=== PATIENT | male | born 1985 | race Caucasian/White ===

== ENCOUNTER 2017-09-03 05:19 | Inpatient (IN) | payer MEDICAID, OTHER ==
[2017-09-03] MEDS: PANTOPRAZOLE 40 MG INJ IV (06:43)
[2017-09-03] MEDS: SOD CHLORIDE 0.9% 1,000 ML IV ×3 (06:43→21:27)
[2017-09-03] MEDS: ONDANSETRON 4 MG INJ IV (06:43)
[2017-09-03 07:10] LABS: ADD MAN DIFF? NO
[2017-09-03 07:23] LABS: BASOPHIL # 0.1 10^3/ul (0.0-0.1); BASOPHILS % 0.3 % (0.0-2.0); HEMOGLOBIN 14.3 g/dl (14.0-18.0); LYMPHOCYTES # 0.7 10^3/ul (0.8-2.9); LYMPHOCYTES % 3.8 % (15.0-51.0); MEAN CORPUSCULAR HEMOGLOBIN 30.9 pg (29.0-33.0); MEAN CORPUSCULAR VOLUME 90.7 fl (82.0-101.0); MEAN PLATELET VOLUME 11.5 fl (7.4-10.4); MONOCYTE # 1.2 10^3/ul (0.3-0.9); NEUTROPHIL # 15.3 10^3/ul (1.6-7.5); NEUTROPHILS % 88.6 % (39.0-77.0); PLATELET COUNT 211 10^3/UL (140-415); RED BLOOD COUNT 4.63 10^6/ul (4.70-6.10); RED CELL DISTRIBUTION WIDTH 13.5 % (11.5-14.5)
[2017-09-03 07:23] LABS: WHITE BLOOD COUNT 17.2 10^3/ul (4.8-10.8)
[2017-09-03 07:38] LABS: ALANINE AMINOTRANSFERASE 217 IU/L (13-69); ALBUMIN 4.8 g/dl (3.3-4.9); ALBUMIN/GLOBULIN RATIO 1.37; ALKALINE PHOSPHATASE 78 IU/L (42-121); ANION GAP 23 (8-16); ASPARTATE AMINO TRANSFERASE 326 IU/L (15-46); BILIRUBIN,INDIRECT 0.1 mg/dl (0-1.1); BILIRUBIN,TOTAL 0.1 mg/dl (0.2-1.3); BLOOD UREA NITROGEN 10 mg/dl (7-20); CALCIUM 9.3 mg/dl (8.4-10.2); CARBON DIOXIDE 22 mmol/L (21-31); CHLORIDE 106 mmol/L (97-110); CREATININE 0.81 mg/dl (0.61-1.24); GLUCOSE 140 mg/dl (70-220); SODIUM 146 mmol/L (135-144); TOTAL PROTEIN 8.3 g/dl (6.1-8.1)
[2017-09-03 07:41] LABS: INR 0.94; PROTIME 12.7 Sec (11.9-14.9)
[2017-09-03 07:42] LABS: PARTIAL THROMBOPLASTIN TIME 23.5 Sec (25.0-35.0)
[2017-09-03 07:58] LABS: TROPONIN-I < 0.012 ng/ml (0.000-0.120)
[2017-09-03] MEDS ORDERED: ACETAMINOPHEN 325 MG TAB PO (10:00)
[2017-09-03] MEDS ORDERED: ONDANSETRON 4 MG INJ IV ×2 (10:00→11:00)
[2017-09-03] MEDS ORDERED: HYDROCODONE/APAP (5/325) TAB PO (11:00)
[2017-09-03] MEDS ORDERED: NACL 0.9% 3 ML SYG IV (11:00)
[2017-09-03 11:10] LABS: HEMOGLOBIN A1C 5.6 % (0-5.9)
[2017-09-03 11:24] LABS: FREE T4 (FREE THYROXINE) 1.55 ng/dl (0.79-2.35)
[2017-09-03 11:37] LABS: THYROID STIMULATING HORMONE 0.474 MIU/L (0.465-4.680)
[2017-09-03] MEDS: THIAMINE 100 MG TAB PO (11:38)
[2017-09-03] MEDS: FOLIC ACID 1 MG TAB PO (11:38)
[2017-09-03] MEDS: LORAZEPAM 0.5 MG TAB PO (11:42)
[2017-09-03 12:14] LABS: HAAIG REFLEX REFLEX FILED
[2017-09-03 12:25] LABS: HEMATOCRIT 39.2 % (42.0-52.0); HEMOGLOBIN 12.8 g/dl (14.0-18.0)
[2017-09-03] MEDS: CHLORDIAZEPOXIDE 25 MG CAP PO ×2 (13:03→21:26)
[2017-09-03 13:13] LABS: HEPATITIS B SURFACE ANTIGEN NEGATIVE (NEGATIVE)
[2017-09-03] MEDS: PANTOPRAZOLE IV 80 MG in SOD CHLORIDE 0.9% 100 ML IV ×2 (13:23→22:37)
[2017-09-03 13:31] LABS: HEPATITIS B CORE ANTIBODY NEGATIVE (NEGATIVE); HEPATITIS C VIRAL ANTIBODY NEGATIVE (NEGATIVE)
[2017-09-03] MEDS: LORAZEPAM 2 MG INJ IV (17:50)
[2017-09-04] MEDS: LORAZEPAM 2 MG INJ IV (01:38)
[2017-09-04 05:24] LABS: ADD MAN DIFF? NO
[2017-09-04 05:28] LABS: WHITE BLOOD COUNT 6.1 10^3/ul (4.8-10.8)
[2017-09-04 05:28] LABS: BASOPHILS % 0.5 % (0.0-2.0); EOSINOPHILS # 0.1 10^3/ul (0.0-0.5); HEMATOCRIT 30.8 % (42.0-52.0); HEMOGLOBIN 10.1 g/dl (14.0-18.0); LYMPHOCYTES # 1.2 10^3/ul (0.8-2.9); LYMPHOCYTES % 20.3 % (15.0-51.0); MEAN CORPUSCULAR HEMOGLOBIN 30.8 pg (29.0-33.0); MEAN CORPUSCULAR HGB CONC 32.8 g/dl (32.0-37.0); MEAN CORPUSCULAR VOLUME 93.9 fl (82.0-101.0); MEAN PLATELET VOLUME 11.6 fl (7.4-10.4); MONOCYTE # 0.8 10^3/ul (0.3-0.9); MONOCYTES % 13.1 % (0.0-11.0); NEUTROPHILS % 64.9 % (39.0-77.0); RED BLOOD COUNT 3.28 10^6/ul (4.70-6.10); RED CELL DISTRIBUTION WIDTH 13.5 % (11.5-14.5)
[2017-09-04 05:52] LABS: ALANINE AMINOTRANSFERASE 97 IU/L (13-69); ALBUMIN 2.9 g/dl (3.3-4.9); ALBUMIN/GLOBULIN RATIO 1.16; ALKALINE PHOSPHATASE 42 IU/L (42-121); AMYLASE 41 U/L (11-123); ANION GAP 7 (8-16); ASPARTATE AMINO TRANSFERASE 76 IU/L (15-46); BILIRUBIN,INDIRECT 0.7 mg/dl (0-1.1); BILIRUBIN,TOTAL 0.7 mg/dl (0.2-1.3); BLOOD UREA NITROGEN 8 mg/dl (7-20); CALCIUM 8.2 mg/dl (8.4-10.2); CARBON DIOXIDE 32 mmol/L (21-31); CHLORIDE 106 mmol/L (97-110); CREATININE 0.71 mg/dl (0.61-1.24); GLUCOSE 97 mg/dl (70-220); LIPASE 57 U/L (23-300); POTASSIUM 4.2 mmol/L (3.5-5.1); SODIUM 141 mmol/L (135-144); TOTAL PROTEIN 5.4 g/dl (6.1-8.1)
[2017-09-04 06:03] LABS: CHOL/HDL RATIO 1.4 RATIO; CHOLESTEROL 103 mg/dl (100-200); HDL CHOLESTEROL 69 mg/dl (28-63); LDL CHOLESTEROL,CALCULATED 27 mg/dl; MAGNESIUM 1.7 mg/dl (1.7-2.5); TRIGLYCERIDES 37 mg/dl (0-149)
[2017-09-04 06:03] LABS: PHOSPHORUS 3.3 mg/dl (2.5-4.9)
[2017-09-04] MEDS: PANTOPRAZOLE IV 80 MG in SOD CHLORIDE 0.9% 100 ML IV ×2 (06:30→09:54)
[2017-09-04 06:50] LABS: PLATELET COUNT 136 10^3/UL (140-415)
[2017-09-04 07:29] LABS: ADD UMIC NO; UR ASCORBIC ACID NEGATIVE (NEGATIVE); UR BILIRUBIN (Dip) NEGATIVE (NEGATIVE); UR BLOOD (Dip) NEGATIVE (NEGATIVE); UR CLARITY CLEAR (CLEAR); UR COLOR YELLOW (YELLOW); UR GLUCOSE (Dip) NEGATIVE (NEGATIVE); UR KETONES (Dip) TRACE mg/dL (NEGATIVE); UR LEUKOCYTE ESTERASE (Dip) NEGATIVE Leu/ul (NEGATIVE); UR NITRITE (Dip) NEGATIVE (NEGATIVE); UR SPECIFIC GRAVITY (Dip) 1.017 (1.003-1.030); UR TOTAL PROTEIN (Dip) NEGATIVE (NEGATIVE); UR UROBILINOGEN (Dip) NEGATIVE (NEGATIVE)
[2017-09-04 08:01] LABS: AMPHETAMINE/METHAMPHETAMINE Negative (NEGATIVE)
[2017-09-04 08:10] LABS: BARBITURATES Negative (NEGATIVE); CANNABINOIDS Negative (NEGATIVE)
[2017-09-04 08:11] LABS: BENZODIAZEPINES Positive (NEGATIVE); COCAINE Positive (NEGATIVE); OPIATES Positive (NEGATIVE)
[2017-09-04] MEDS: FOLIC ACID 1 MG TAB PO (09:00)
[2017-09-04] MEDS: THIAMINE 100 MG TAB PO (09:00)
[2017-09-04] MEDS: CHLORDIAZEPOXIDE 25 MG CAP PO ×2 (09:00→13:22)
[2017-09-04] MEDS: SOD CHLORIDE 0.9% 1,000 ML IV (13:02)
[2017-09-04 14:38] LABS: HEMATOCRIT 34.9 % (42.0-52.0); HEMOGLOBIN 11.6 g/dl (14.0-18.0)
[2017-09-07 06:37] LABS: URINE DRUG SCREEN RESULT DRUG(S) DETECTED:
== END 2017-09-04 18:20 | disposition left against medical advice (07) | DRG 379 ==
LOC: E/R 05:19 → MS1 09:48
DX: K92.0 Hematemesis (principal); F10.20 Alcohol dependence, uncomplicated; D72.829 Elevated white blood cell count, unspecified; Z72.0 Tobacco use; E80.6 Other disorders of bilirubin metabolism; Y90.6 Blood alcohol level of 120-199 mg/100 ml
CPT/HCPCS: 36415; 80053; 80061; 80307; 81003; 82150; 83036; 83690; 83735; 84100; 84439; 84443; 84484; 85014; 85018; 85025; 85610; 85730; 86704; 86709; 86803; 86850; 86900; 86901; 87340; 93005; 96374; 96375; 99285-25

== ENCOUNTER 2017-09-04 20:30 | Inpatient (IN) | payer MEDICAID ==
[2017-09-04] MEDS ORDERED: ACETAMINOPHEN 325 MG TAB PO ×2 (21:00→21:30)
[2017-09-04] MEDS ORDERED: ONDANSETRON 4 MG INJ IV ×2 (21:00→21:30)
[2017-09-04] MEDS: SOD CHLORIDE 0.9% 1,000 ML IV ×3 (21:04→21:53)
[2017-09-04 21:13] LABS: ADD MAN DIFF? NO
[2017-09-04 21:15] LABS: BASOPHILS % 0.4 % (0.0-2.0); EOSINOPHILS # 0.1 10^3/ul (0.0-0.5); EOSINOPHILS % 1.2 % (0.0-7.0); HEMATOCRIT 35.8 % (42.0-52.0); HEMOGLOBIN 11.9 g/dl (14.0-18.0); LYMPHOCYTES # 0.8 10^3/ul (0.8-2.9); LYMPHOCYTES % 13.3 % (15.0-51.0); MEAN CORPUSCULAR HEMOGLOBIN 31.1 pg (29.0-33.0); MEAN CORPUSCULAR HGB CONC 33.2 g/dl (32.0-37.0); MEAN CORPUSCULAR VOLUME 93.5 fl (82.0-101.0); MEAN PLATELET VOLUME 11.5 fl (7.4-10.4); MONOCYTE # 0.7 10^3/ul (0.3-0.9); MONOCYTES % 11.6 % (0.0-11.0); NEUTROPHIL # 4.1 10^3/ul (1.6-7.5); NEUTROPHILS % 73.3 % (39.0-77.0); PLATELET COUNT 144 10^3/UL (140-415); RED BLOOD COUNT 3.83 10^6/ul (4.70-6.10); RED CELL DISTRIBUTION WIDTH 13.5 % (11.5-14.5)
[2017-09-04 21:15] LABS: WHITE BLOOD COUNT 5.6 10^3/ul (4.8-10.8)
[2017-09-04] MEDS: PANTOPRAZOLE IV 80 MG in SOD CHLORIDE 0.9% 100 ML IV (21:18)
[2017-09-04] MEDS ORDERED: NACL 0.9% 3 ML SYG IV (21:30)
[2017-09-04] MEDS ORDERED: HYDROmorphONE 0.5 MG/0.5 ML SYG IV (21:30)
[2017-09-04 21:34] LABS: ALANINE AMINOTRANSFERASE 114 IU/L (13-69); ALBUMIN 4.1 g/dl (3.3-4.9); ALBUMIN/GLOBULIN RATIO 1.32; ALKALINE PHOSPHATASE 63 IU/L (42-121); ANION GAP 20 (8-16); ASPARTATE AMINO TRANSFERASE 118 IU/L (15-46); BILIRUBIN,INDIRECT 0.4 mg/dl (0-1.1); BILIRUBIN,TOTAL 0.4 mg/dl (0.2-1.3); BLOOD UREA NITROGEN 3 mg/dl (7-20); CALCIUM 8.7 mg/dl (8.4-10.2); CARBON DIOXIDE 25 mmol/L (21-31); CHLORIDE 107 mmol/L (97-110); CREATININE 0.73 mg/dl (0.61-1.24); GLUCOSE 98 mg/dl (70-220); POTASSIUM 3.9 mmol/L (3.5-5.1); SODIUM 148 mmol/L (135-144); TOTAL PROTEIN 7.2 g/dl (6.1-8.1)
[2017-09-04 21:36] LABS: INR 0.93; PROTIME 12.5 Sec (11.9-14.9)
[2017-09-04 21:37] LABS: PARTIAL THROMBOPLASTIN TIME 28.6 Sec (25.0-35.0)
[2017-09-04 21:42] LABS: COCAINE Negative (NEGATIVE)
[2017-09-04 21:43] LABS: AMPHETAMINE/METHAMPHETAMINE Negative (NEGATIVE); BARBITURATES Negative (NEGATIVE); BENZODIAZEPINES Positive (NEGATIVE); CANNABINOIDS Negative (NEGATIVE); OPIATES Negative (NEGATIVE)
[2017-09-04 21:52] LABS: TROPONIN-I < 0.012 ng/ml (0.000-0.120)
[2017-09-04] MEDS: CHLORDIAZEPOXIDE 25 MG CAP PO (22:48)
[2017-09-04] MEDS: LORAZEPAM 2 MG INJ IV (22:49)
[2017-09-05 02:42] LABS: ADD MAN DIFF? NO
[2017-09-05 02:44] LABS: BASOPHILS % 0.4 % (0.0-2.0); EOSINOPHILS # 0.1 10^3/ul (0.0-0.5); EOSINOPHILS % 2.4 % (0.0-7.0); HEMATOCRIT 31.1 % (42.0-52.0); HEMOGLOBIN 10.4 g/dl (14.0-18.0); LYMPHOCYTES # 1.3 10^3/ul (0.8-2.9); MEAN CORPUSCULAR HGB CONC 33.4 g/dl (32.0-37.0); MEAN CORPUSCULAR VOLUME 92.6 fl (82.0-101.0); MEAN PLATELET VOLUME 12.1 fl (7.4-10.4); MONOCYTE # 0.6 10^3/ul (0.3-0.9); MONOCYTES % 11.9 % (0.0-11.0); NEUTROPHILS % 59.1 % (39.0-77.0); PLATELET COUNT 134 10^3/UL (140-415); RED BLOOD COUNT 3.36 10^6/ul (4.70-6.10); RED CELL DISTRIBUTION WIDTH 13.6 % (11.5-14.5)
[2017-09-05 03:00] LABS: ETHANOL < 10.0 mg/dl
[2017-09-05 03:02] LABS: ALANINE AMINOTRANSFERASE 129 IU/L (13-69); ALBUMIN 3.3 g/dl (3.3-4.9); ALBUMIN/GLOBULIN RATIO 1.13; ALKALINE PHOSPHATASE 56 IU/L (42-121); ANION GAP 15 (8-16); ASPARTATE AMINO TRANSFERASE 181 IU/L (15-46); BILIRUBIN,INDIRECT 0.3 mg/dl (0-1.1); BILIRUBIN,TOTAL 0.3 mg/dl (0.2-1.3); BLOOD UREA NITROGEN 4 mg/dl (7-20); CALCIUM 8.3 mg/dl (8.4-10.2); CARBON DIOXIDE 27 mmol/L (21-31); CHLORIDE 111 mmol/L (97-110); CREATININE 0.68 mg/dl (0.61-1.24); GLUCOSE 107 mg/dl (70-220); SODIUM 149 mmol/L (135-144); TOTAL PROTEIN 6.2 g/dl (6.1-8.1)
[2017-09-05] MEDS: LORAZEPAM 2 MG INJ IV ×3 (03:09→13:35)
[2017-09-05] MEDS: D5W-0.45 NACL + KCL 10 MEQ 1,000 ML IV (03:14)
[2017-09-05 08:52] LABS: ADD MAN DIFF? NO
[2017-09-05 08:56] LABS: BASOPHILS % 0.4 % (0.0-2.0); EOSINOPHILS # 0.1 10^3/ul (0.0-0.5); EOSINOPHILS % 2.3 % (0.0-7.0); HEMATOCRIT 31.7 % (42.0-52.0); HEMOGLOBIN 10.4 g/dl (14.0-18.0); LYMPHOCYTES # 1.2 10^3/ul (0.8-2.9); LYMPHOCYTES % 24.1 % (15.0-51.0); MEAN CORPUSCULAR HEMOGLOBIN 30.7 pg (29.0-33.0); MEAN CORPUSCULAR HGB CONC 32.8 g/dl (32.0-37.0); MEAN CORPUSCULAR VOLUME 93.5 fl (82.0-101.0); MEAN PLATELET VOLUME 11.9 fl (7.4-10.4); MONOCYTE # 0.6 10^3/ul (0.3-0.9); MONOCYTES % 12.2 % (0.0-11.0); NEUTROPHIL # 2.9 10^3/ul (1.6-7.5); NEUTROPHILS % 60.8 % (39.0-77.0); PLATELET COUNT 139 10^3/UL (140-415); RED BLOOD COUNT 3.39 10^6/ul (4.70-6.10); RED CELL DISTRIBUTION WIDTH 13.4 % (11.5-14.5)
[2017-09-05 08:56] LABS: WHITE BLOOD COUNT 4.8 10^3/ul (4.8-10.8)
[2017-09-05] MEDS: CHLORDIAZEPOXIDE 25 MG CAP PO ×2 (09:30→13:12)
[2017-09-05] MEDS ORDERED: CHLORDIAZEPOXIDE 25 MG CAP PO (13:00)
[2017-09-05] MEDS: CEFTRIAXONE 1 GM/50 ML (PMX) 50 ML IVPB (13:12)
[2017-09-05] MEDS: DEXTROSE 5% 1,000 ML IV (13:13)
[2017-09-05 14:39] LABS: ADD MAN DIFF? NO; HAAIG REFLEX REFLEX FILED
[2017-09-05 14:58] LABS: WHITE BLOOD COUNT 4.2 10^3/ul (4.8-10.8)
[2017-09-05 14:58] LABS: BASOPHILS % 0.7 % (0.0-2.0); EOSINOPHILS # 0.1 10^3/ul (0.0-0.5); EOSINOPHILS % 2.6 % (0.0-7.0); HEMATOCRIT 32.1 % (42.0-52.0); HEMOGLOBIN 10.6 g/dl (14.0-18.0); LYMPHOCYTES # 0.8 10^3/ul (0.8-2.9); LYMPHOCYTES % 19.9 % (15.0-51.0); MEAN CORPUSCULAR HEMOGLOBIN 30.8 pg (29.0-33.0); MEAN CORPUSCULAR VOLUME 93.3 fl (82.0-101.0); MEAN PLATELET VOLUME 11.9 fl (7.4-10.4); MONOCYTE # 0.6 10^3/ul (0.3-0.9); MONOCYTES % 14.2 % (0.0-11.0); NEUTROPHIL # 2.6 10^3/ul (1.6-7.5); NEUTROPHILS % 62.4 % (39.0-77.0); PLATELET COUNT 132 10^3/UL (140-415); RED BLOOD COUNT 3.44 10^6/ul (4.70-6.10); RED CELL DISTRIBUTION WIDTH 13.6 % (11.5-14.5)
[2017-09-05 15:03] LABS: CHOLESTEROL 115 mg/dl (100-200)
[2017-09-05 15:03] LABS: CHOL/HDL RATIO 1.5 RATIO; HDL CHOLESTEROL 73 mg/dl (28-63); LDL CHOLESTEROL,CALCULATED 33 mg/dl; TRIGLYCERIDES 44 mg/dl (0-149)
[2017-09-05 15:34] LABS: HEPATITIS B SURFACE ANTIGEN NEGATIVE (NEGATIVE)
[2017-09-05 15:52] LABS: HEPATITIS B CORE ANTIBODY NEGATIVE (NEGATIVE); HEPATITIS C VIRAL ANTIBODY NEGATIVE (NEGATIVE)
[2017-09-05 17:41] LABS: ALBUMIN 3.4 g/dl (3.3-4.9); ANION GAP 14 (8-16); BLOOD UREA NITROGEN 3 mg/dl (7-20); CALCIUM 8.6 mg/dl (8.4-10.2); CARBON DIOXIDE 27 mmol/L (21-31); CHLORIDE 107 mmol/L (97-110); CREATININE 0.69 mg/dl (0.61-1.24); GLUCOSE 98 mg/dl (70-220); PHOSPHORUS 3.4 mg/dl (2.5-4.9); POTASSIUM 3.6 mmol/L (3.5-5.1); SODIUM 144 mmol/L (135-144)
[2017-09-06] MEDS ORDERED: CHLORDIAZEPOXIDE 25 MG CAP PO (06:00)
[2017-09-07] MEDS ORDERED: CHLORDIAZEPOXIDE 25 MG CAP PO (09:00)
== END 2017-09-05 17:30 | disposition left against medical advice (07) | DRG 378 ==
LOC: E/R 20:30 → MS2 20:56
DX: K92.0 Hematemesis (principal); E87.0 Hyperosmolality and hypernatremia; F17.210 Nicotine dependence, cigarettes, uncomplicated; F10.20 Alcohol dependence, uncomplicated; R79.89 Other specified abnormal findings of blood chemistry
CPT/HCPCS: 36415; 76705; 80053; 80061; 80069; 80307; 84484; 85025; 85610; 85730; 86704; 86709; 86803; 87340; 96374; 99285-25